=== PATIENT | female | born 1970 | race Caucasian/White ===

== ENCOUNTER 2016-09-07 12:20 | Emergency (ER) | payer OTHER ==
[2016-09-07 12:49] VITALS: BP 135/85
--- NOTE | 2016-09-07 13:28 | UC ---
Respiratory Complaint HPI - HPI Summary HPI Summary: Patient with 2x history of cough, sore throat, dry mouth and head congestion. Previous smoker. Laying down makes the cough worse. She has been around sick contacts, all with URI symptoms. States she has had some nasal discharge green in color, denies sinus pressure or pain. Denies ear pain, eye pain or ARANDA. Takes an allergy medication daily. - History of Current Complaint Chief Complaint: UCRespiratory Stated Complaint: COUGH Hx Obtained From: Patient Hx Last Menstrual Period: hysterectomy ?: No Onset/Duration: Gradual Onset Timing: Constant Severity Initially: Mild Severity Currently: Moderate Pain Intensity: 1 Pain Scale Used: 0-10 Numeric Character: Cough: Nonproductive Aggravating Factors: Allergens Alleviating Factors: Nothing Associated Signs And Symptoms: Positive: Negative - Risk Factors Pulmonary Embolism Risk Factors: Smoking - history of smoking Cardiac Risk Factors: Smoking Pseudomonas Risk Factors: Negative Tuberculosis Risk Factors: Smoking - Allergies/Home Medications Allergies/Adverse Reactions: Allergies Allergy/AdvReac Type Severity Reaction Status Date / Time Amoxicillin [From Augmentin] Allergy Rash Verified 09/07/16 12:49 Clavulanic Acid Allergy Rash Verified 09/07/16 12:49 [From Augmentin] PMH/Surg Hx/FS Hx/Imm Hx Previously Healthy: Yes Endocrine History Of: Denies: Diabetes, Thyroid Disease Cardiovascular History Of: Denies: Cardiac Disorders, Hypertension, Pacemaker/ICD Respiratory History Of: Reports: Asthma - ALLERGY INDUCED Denies: COPD GI/ History Of: Reports: Ulcer Denies: Renal Disease Cancer History Of: Denies: Breast Cancer - Surgical History Surgical History: Yes Surgery Procedure, Year, and Place: mass removed from uterus 06/13/12. right wrist ganglion cyst. 12/25/12 Hysterectomy - Family History Known Family History: Positive: None, Hypertension, Diabetes, Other - noncontributory - Social History Occupation: Employed Full-time Lives: With Family Alcohol Use: None Substance Use Type: None Smoking Status (MU): Former Smoker Type: Cigarettes Amount Used/How Often: 1/2 ppd Length of Time of Smoking/Using Tobacco: 30 years QUIT 09/16/15 BUT IS "CHEATING Have You Smoked in the Last Year: Yes When Did the Patient Quit Smoking/Using Tobacco: aug 12, 2015 Household Exposure Type: Cigarettes - Immunization History Most Recent Influenza Vaccination: 2014 Hx Tetanus, Diphtheria Vaccination: Yes Vaccination Up to Date: Yes Review of Systems Constitutional: Negative Skin: Negative Eyes: Negative ENT: Sore Throat, Nasal Discharge Respiratory: Shortness Of Breath, Cough Gastrointestinal: Negative Motor: Negative Musculoskeletal: Negative Neurological: Negative All Other Systems Reviewed And Are Negative: Yes Physical Exam Triage Information Reviewed: Yes Appearance: Well-Appearing, No Pain Distress, Well-Nourished Vital Signs: Initial Vital Signs Temp 97.7 F 09/07/16 12:42 Pulse 82 09/07/16 12:42 Resp 20 09/07/16 12:42 BP 135/85 09/07/16 12:42 Pulse Ox 96 09/07/16 12:42 Eye Exam: Normal Eyes: Positive: Conjunctiva Clear ENT Exam: Normal ENT: Positive: Normal ENT inspection, Pharynx normal, Nasal congestion, Nasal drainage Dental: Positive: Gross Decay/Caries @ - all Neck exam: Normal Neck: Positive: Supple, Nontender, No Lymphadenopathy Respiratory Exam: Normal Respiratory: Positive: Chest non-tender, Lungs clear, Normal breath sounds Cardiovascular Exam: Normal Musculoskeletal Exam: Normal Musculoskeletal: Positive: Strength Intact, ROM Intact Neurological Exam: Normal Psychological: Positive: Normal Response To Family Skin Exam: Normal UC Diagnostic Evaluation - Laboratory O2 Sat by Pulse Oximetry: 96 Respiratory Course/Dx - Course Course Of Treatment: patient eduated on antibiotics. d/t 2 day history of cough with white/green nasal discharge, it is unlikely this is bacterial in nature and will not give abx at this time. patient agrees. will treat with cough medication and prednisone for sob d/t smoking history. return precautions given. - Differential Dx/Diagnosis Differential Diagnosis/HQI/PQRI: Bronchitis, Sinusitis, Other Provider Diagnoses: URI - Physician Notification/Consults Instructed by Provider To: Have Pt Call For Appt. Discharge - Discharge Plan Condition: Stable Disposition: HOME Prescriptions: guaiFENesin/CODIEN 100MG-10MG* [Robitussin AC 100Mg-10Mg*] 10 ml PO Q6H PRN # 150 ml MDD 40 PRN Reason: Cough predniSONE TAB* [Deltasone TAB*] 10 mg PO DAILY #17 tab Patient Education Materials: Upper Respiratory Infection (ED) Referrals: Jen Suarez MD [Primary Care Provider] - Additional Instructions: Drink plenty of fluids. Humidifier in the home will help. Cepacol over the counter lozenges for sore throat. Take medications as prescribed to you. If symptoms do not improve or worsen, come back to UC. Begin your jared-C again.
== END 2016-09-07 13:25 | disposition home or self-care (01) ==
LOC: UCEAST 12:20
DX: J06.9 Acute upper respiratory infection, unspecified (principal); Z87.891 Personal history of nicotine dependence; Z88.0 Allergy status to penicillin
CPT/HCPCS: 99212; G0463

== ENCOUNTER 2016-09-12 16:07 | Emergency (ER) | payer OTHER ==
[2016-09-12 16:40] VITALS: BP 120/79
--- NOTE | 2016-09-12 17:06 | UC ---
Throat Pain/Nasal Teddy HPI - HPI Summary HPI Summary: going on 2 weeks of sinus pain, teeth pain nasal congestion sore throat and cough - History of Current Complaint Chief Complaint: UCRespiratory Stated Complaint: COLD,ST Time Seen by Provider: 09/12/16 16:59 Hx Obtained From: Patient Hx Last Menstrual Period: hysterectomy ?: No Onset/Duration: Gradual Onset, Lasting Weeks - 2, Still Present Severity: Moderate Pain Intensity: 6 Pain Scale Used: 0-10 Numeric Cough: Nonproductive Associated Signs & Symptoms: Positive: Sinus Discomfort, Nasal Discharge - Allergies/Home Medications Allergies/Adverse Reactions: Allergies Allergy/AdvReac Type Severity Reaction Status Date / Time Amoxicillin [From Augmentin] Allergy Rash Verified 09/12/16 16:40 Clavulanic Acid Allergy Rash Verified 09/12/16 16:40 [From Augmentin] PMH/Surg Hx/FS Hx/Imm Hx Previously Healthy: No Endocrine History Of: Denies: Diabetes, Thyroid Disease Cardiovascular History Of: Denies: Cardiac Disorders, Hypertension, Pacemaker/ICD Respiratory History Of: Reports: Asthma - ALLERGY INDUCED Denies: COPD GI/ History Of: Reports: Ulcer Denies: Renal Disease Cancer History Of: Denies: Breast Cancer - Surgical History Surgical History: Yes Surgery Procedure, Year, and Place: mass removed from uterus 06/13/12. right wrist ganglion cyst. 12/25/12 Hysterectomy - Family History Known Family History: Positive: None, Hypertension, Diabetes, Other - noncontributory - Social History Occupation: Employed Full-time - day care provider Lives: With Family Alcohol Use: None Substance Use Type: None Smoking Status (MU): Former Smoker Type: Cigarettes Amount Used/How Often: 1/2 ppd Length of Time of Smoking/Using Tobacco: 30 years QUIT 09/16/15 BUT IS "CHEATING Have You Smoked in the Last Year: Yes When Did the Patient Quit Smoking/Using Tobacco: aug 12, 2015 Household Exposure Type: Cigarettes - Immunization History Most Recent Influenza Vaccination: 2014 Hx Tetanus, Diphtheria Vaccination: Yes Vaccination Up to Date: Yes Review of Systems Constitutional: Negative Skin: Negative Eyes: Negative ENT: Sore Throat, Ear Ache, Nasal Discharge Respiratory: Cough Cardiovascular: Negative Gastrointestinal: Negative Genitourinary: Negative Motor: Negative Neurovascular: Negative Musculoskeletal: Negative Neurological: Headache Psychological: Negative All Other Systems Reviewed And Are Negative: Yes Physical Exam Triage Information Reviewed: Yes Appearance: Well-Nourished, Ill-Appearing - mild, Pain Distress Vital Signs: Initial Vital Signs Temp 97.7 F 09/12/16 16:36 Pulse 79 09/12/16 16:36 Resp 16 09/12/16 16:36 BP 120/79 09/12/16 16:36 Pulse Ox 99 09/12/16 16:36 Vital Signs Reviewed: Yes Eye Exam: Normal Eyes: Positive: Conjunctiva Clear ENT Exam: Normal ENT: Positive: Normal ENT inspection, Hearing grossly normal, Pharynx normal, Nasal congestion, Nasal drainage, TMs normal. Negative: Tonsillar swelling, Tonsillar exudate, Trismus, Muffled/hoarse voice Dental Exam: Normal Neck exam: Normal Neck: Positive: Supple, Nontender, No Lymphadenopathy Respiratory Exam: Normal Respiratory: Positive: Chest non-tender, Lungs clear, Normal breath sounds, No respiratory distress, No accessory muscle use Cardiovascular Exam: Normal Cardiovascular: Positive: RRR, No Murmur, Pulses Normal, Brisk Capillary Refill Musculoskeletal Exam: Normal Musculoskeletal: Positive: Strength Intact, ROM Intact, No Edema Neurological Exam: Normal Neurological: Positive: Alert, Muscle Tone Normal Psychological Exam: Normal Psychological: Positive: Normal Response To Family Skin Exam: Normal Throat Pain/Nasal Course/Dx - Course Assessment/Plan: Zithromax, albuterol, flonase, increase fluids follow with pcp - Differential Dx/Diagnosis Differential Diagnosis/HQI/PQRI: Laryngitis, Mononucleosis, Otitis Media, Pharyngitis, Sinusitis, URI Provider Diagnoses: Sinusitis Discharge - Discharge Plan Condition: Stable Disposition: HOME Prescriptions: Albuterol HFA INHALER* [Ventolin HFA Inhaler*] 2 puff INH Q6H PRN #1 mdi PRN Reason: cough/chest congestion Azithromycin TAB* [Zithromax TAB (Z-KANCHAN)*] 250 mg PO .Z-KANCHAN INSTRUCTIONS #6 tab Fluticasone NASAL SPRAY 50MCG* [Flonase NASAL SPRAY 50MCG*] 2 spray BOTH NARES DAILY #1 btl Patient Education Materials: Sinusitis (ED), How to Use a Metered-Dose Inhaler (ED), How to Use Nasal [place] (ED) Referrals: Jen Suarez MD [Primary Care Provider] - If Needed
== END 2016-09-12 17:27 | disposition home or self-care (01) ==
LOC: UCEAST 16:07
DX: J32.9 Chronic sinusitis, unspecified (principal); Z88.1 Allergy status to other antibiotic agents; Z88.0 Allergy status to penicillin; Z87.891 Personal history of nicotine dependence
CPT/HCPCS: 99212; G0463

== ENCOUNTER 2016-12-15 18:11 | Emergency (ER) | payer OTHER ==
[2016-12-15 18:26] VITALS: BP 140/90
--- NOTE | 2016-12-15 19:10 | UC ---
Throat Pain/Nasal Teddy HPI - HPI Summary HPI Summary: Lots of PND x 1-2 weeks, face burning, worse when it was raining. Now hoarse and ST with "white popcorn" in her throat. Has exposure to 3 school-aged granddaughters. No fevers or trouble breathing. - History of Current Complaint Chief Complaint: UCRespiratory Stated Complaint: SINUS CONGESTION Time Seen by Provider: 12/15/16 18:40 Hx Obtained From: Patient Hx Last Menstrual Period: hysterectomy ?: No Onset/Duration: Gradual Onset, Lasting Weeks Severity: Mild Cough: Productive - throat-clearing Associated Signs & Symptoms: Positive: Hoarseness, Nasal Discharge. Negative: Fever, Vomiting Related History: Seasonal Allergies, Smoking - Allergies/Home Medications Allergies/Adverse Reactions: Allergies Allergy/AdvReac Type Severity Reaction Status Date / Time Amoxicillin [From Augmentin] Allergy Rash Verified 09/12/16 16:40 Clavulanic Acid Allergy Rash Verified 09/12/16 16:40 [From Augmentin] PMH/Surg Hx/FS Hx/Imm Hx Endocrine History Of: Denies: Diabetes, Thyroid Disease Cardiovascular History Of: Denies: Cardiac Disorders, Hypertension, Pacemaker/ICD Respiratory History Of: Reports: Asthma - ALLERGY INDUCED Denies: COPD GI/ History Of: Reports: Ulcer Denies: Renal Disease Cancer History Of: Denies: Breast Cancer - Surgical History Surgical History: Yes Surgery Procedure, Year, and Place: mass removed from uterus 06/13/12. right wrist ganglion cyst. 12/25/12 Hysterectomy - Family History Known Family History: Positive: None, Hypertension, Diabetes, Other - noncontributory - Social History Alcohol Use: None Substance Use Type: None Smoking Status (MU): Current Some Day Smoker Type: Cigarettes Amount Used/How Often: 1/2 ppd Length of Time of Smoking/Using Tobacco: 30 years QUIT 09/16/15 BUT IS "CHEATING Have You Smoked in the Last Year: Yes When Did the Patient Quit Smoking/Using Tobacco: aug 12, 2015 Household Exposure Type: Cigarettes - Immunization History Most Recent Influenza Vaccination: 2014 Hx Tetanus, Diphtheria Vaccination: Yes Vaccination Up to Date: Yes Review of Systems Constitutional: Negative Skin: Negative Eyes: Negative ENT: Sore Throat, Nasal Discharge Respiratory: Cough Cardiovascular: Negative Gastrointestinal: Negative Genitourinary: Negative Motor: Negative Neurovascular: Negative Musculoskeletal: Negative Neurological: Negative Psychological: Negative All Other Systems Reviewed And Are Negative: Yes Physical Exam Triage Information Reviewed: Yes Appearance: Well-Appearing, No Pain Distress, Obese Vital Signs: Initial Vital Signs Temp 98.0 F 12/15/16 18:22 Pulse 77 12/15/16 18:22 Resp 18 12/15/16 18:22 BP 140/90 12/15/16 18:22 Pulse Ox 99 12/15/16 18:22 Vital Signs Reviewed: Yes Eye Exam: Normal Eyes: Positive: Conjunctiva Clear ENT: Positive: Hearing grossly normal, Pharyngeal erythema - mild, Nasal congestion, TMs normal Neck exam: Normal Neck: Positive: Supple, Nontender, No Lymphadenopathy Respiratory Exam: Normal Respiratory: Positive: Chest non-tender, Lungs clear, Normal breath sounds, No respiratory distress, No accessory muscle use Cardiovascular Exam: Normal Cardiovascular: Positive: RRR, No Murmur Musculoskeletal Exam: Normal Neurological Exam: Normal Neurological: Positive: Alert Psychological Exam: Normal Skin Exam: Normal Throat Pain/Nasal Course/Dx - Differential Dx/Diagnosis Provider Diagnoses: Allergic sinusitis. blood pressure elevated due to discomfort Discharge - Discharge Plan Condition: Stable Disposition: HOME Patient Education Materials: Allergic Rhinitis (ED) Referrals: Jen Suarez MD [Primary Care Provider] - 2 Weeks Additional Instructions: Rapid strep negative. If you have fever, facial swelling, difficulty breathing, severe pain, or marked worsening, please see your primary care provider or return here.
== END 2016-12-15 19:30 | disposition home or self-care (01) ==
LOC: UCEAST 18:11
DX: J30.9 Allergic rhinitis, unspecified (principal); R03.0 Elevated blood-pressure reading, without diagnosis of hypertension; E66.9 Obesity, unspecified; Z88.1 Allergy status to other antibiotic agents; Z72.0 Tobacco use
CPT/HCPCS: 87651; 99212; G0463

== ENCOUNTER 2017-01-24 09:13 | Day surgery (SDC) | payer OTHER ==
[~2017-01-24 09:13] MED LIST: Lidocaine 1% INJ* 10 MG/ML 30 ML SDV ONE
[2017-01-24] MEDS ORDERED: fentaNYL* 50 MCG/ML 2 ML VIAL (100 MCG VIAL) ONE (11:13)
[2017-01-24] MEDS ORDERED: Midazolam* 1 MG/ML 2 ML VIAL (2 MG) ONE ×2 (11:14→11:36)
[2017-01-24 12:15] VITALS: BP 130/85
--- NOTE | 2017-01-25 02:58 | OP ---
OPERATIVE REPORT: DATE OF OPERATION: 01/24/17 - DAVIDA DATE OF : 66 SURGEON: Fany Lee MD. WET MILLING WHEEL OPERATOR: MASOUD Goncalves ANESTHESIOLOGIST: Phillip Juarez MD. ANESTHESIA: Local MAC. PRE-OP DIAGNOSIS: Right middle finger mass and left wrist ganglion. POST-OP DIAGNOSIS: Right middle finger mass and left wrist ganglion. PROCEDURE: Removal of right middle finger mass and left wrist ganglion. ESTIMATED BLOOD LOSS: Zero. TOURNIQUET TIME: About 12 minutes on the left and 8 minutes on the right. DESCRIPTION OF PROCEDURE: The patient was brought to the operating room and was given a sedation anesthetic and a local infiltration of 10 cc of 1% plain lidocaine on the radial aspect of the right wrist and on the volar aspect of the right middle finger. The skin of her bilateral hand and forearm was prepped and draped in the usual sterile fashion. The hand and forearm on the left were exsanguinated and the tourniquet elevated 250 mmHg. A Chevron incision was made over the palpable mass and we dissected through the subcutaneous tissue down to the ganglion cyst. The cyst was traced down with its root to the joint capsule and removed and sent for pathology. The edges of the capsule were cauterized with Bovie, the wound was irrigated and the skin edges reapproximated with 4-0 nylon suture. The wound was dressed with Xeroform , 4x4, Webril and an Stu wrap and the tourniquet was released. Next, the right hand and forearm were exsanguinated and the tourniquet elevated to 250 mmHg. A transverse incision was made centered over the MP flexion crease of the middle finger, dissected down to the flexor tendon sheath. The digital neurovascular bundles were retracted. There was a ganglion cyst emanating from the flexor tendon sheath and it was removed with a small portion of the sheath and sent for pathology. The wound was irrigated and the skin edges reapproximated with 4-0 nylon sutures. The wound was dressed with Xeroform, 4x4, Webril and Coban. The patient tolerated the procedure well and was brought to the recovery room in good condition. [id number]/CPS #: [id number] [facility]OSPITALJacque
== END 2017-01-24 12:29 | disposition home or self-care (01) ==
LOC: OREAST 09:13
PROVIDERS: ATTEND Orthopaedic Surgery
DX: M67.432 Ganglion, left wrist (principal); L72.0 Epidermal cyst; Z87.891 Personal history of nicotine dependence; K21.9 Gastro-esophageal reflux disease without esophagitis; M79.606 Pain in leg, unspecified
CPT/HCPCS: 88304; J2001; J2250; J3010

== ENCOUNTER 2017-03-02 18:31 | Emergency (ER) | payer OTHER ==
[2017-03-02 19:08] VITALS: BP 142/85
--- NOTE | 2017-03-02 19:37 | UC ---
Throat Pain/Nasal Teddy HPI - HPI Summary HPI Summary: 2.5 WEEKS OF COUGH SINUS CONGESTION, FACIAL/SINUS HEADACHE AND PRESSURE. QUIT SMOKING 8 MONTHS AGO - History of Current Complaint Chief Complaint: UCRespiratory Stated Complaint: sinus and chest congestion Time Seen by Provider: 03/02/17 19:07 Hx Obtained From: Patient, Family/Research Dietitian Hx Last Menstrual Period: hysterectomy Onset/Duration: Gradual Onset, Lasting Weeks, Still Present Severity: Moderate Pain Intensity: 4 Pain Scale Used: 0-10 Numeric Cough: Productive Associated Signs & Symptoms: Positive: Hoarseness, Sinus Discomfort, Nasal Discharge - Epiglottits Risk Factors Epiglottis Risk Factors: Negative - Allergies/Home Medications Allergies/Adverse Reactions: Allergies Allergy/AdvReac Type Severity Reaction Status Date / Time Amoxicillin [From Augmentin] Allergy Rash Verified 03/02/17 19:09 Clavulanic Acid Allergy Rash Verified 03/02/17 19:09 [From Augmentin] Home Medications: Home Medications Bioflavonoid Products [[place]-C] 1 tab PO DAILY 03/02/17 [History Confirmed 03/02] Sinus Decongestant* PRN 03/02/17 [History] PMH/Surg Hx/FS Hx/Imm Hx Previously Healthy: Yes - Surgical History Surgical History: Yes Surgery Procedure, Year, and Place: mass removed from uterus 06/13/12. right wrist ganglion cyst. 12/25/12 Hysterectomy. LEFT WRIST AND RIGHT FINGER GANGLION CYSTS REMOVAL 2016 - Family History Known Family History: Positive: None, Hypertension, Diabetes, Other - noncontributory - Social History Occupation: Employed Full-time Lives: With Family Alcohol Use: None Substance Use Type: None Smoking Status (MU): Current Every Day Smoker Type: Cigarettes Amount Used/How Often: 1/2 ppd for 30 yrs Length of Time of Smoking/Using Tobacco: 30 years QUIT 09/16/15 BUT IS "CHEATING Have You Smoked in the Last Year: Yes When Did the Patient Quit Smoking/Using Tobacco: aug 12, 2015 Household Exposure Type: Cigarettes - Immunization History Most Recent Influenza Vaccination: 2014 Hx Tetanus, Diphtheria Vaccination: Yes Vaccination Up to Date: Yes Review of Systems Constitutional: Negative Skin: Negative Eyes: Negative ENT: Nasal Discharge, Sinus Congestion, Sinus Pain/Tenderness Respiratory: Cough Cardiovascular: Negative Gastrointestinal: Negative Genitourinary: Negative Motor: Negative Neurovascular: Negative Musculoskeletal: Negative Neurological: Negative Psychological: Negative All Other Systems Reviewed And Are Negative: Yes Physical Exam Triage Information Reviewed: Yes Appearance: Well-Appearing, No Pain Distress, Well-Nourished Vital Signs: Initial Vital Signs Temp 98.2 F 03/02/17 19:05 Pulse 81 03/02/17 19:05 Resp 16 03/02/17 19:05 BP 142/85 03/02/17 19:05 Pulse Ox 99 03/02/17 19:05 Vital Signs Reviewed: Yes Eye Exam: Normal ENT: Positive: Hearing grossly normal, Pharynx normal, Nasal congestion, TMs normal, TM dull Dental Exam: Normal Neck exam: Normal Neck: Positive: Supple, Nontender, No Lymphadenopathy Respiratory Exam: Normal Respiratory: Positive: Chest non-tender, Lungs clear, Normal breath sounds, No respiratory distress, No accessory muscle use Cardiovascular Exam: Normal Cardiovascular: Positive: RRR, No Murmur Abdominal Exam: Normal Abdomen Description: Positive: Nontender Musculoskeletal Exam: Normal Neurological Exam: Normal Psychological Exam: Normal Skin Exam: Normal Throat Pain/Nasal Course/Dx - Differential Dx/Diagnosis Differential Diagnosis/HQI/PQRI: Sinusitis, Tonsillitis, URI Provider Diagnoses: SINUSITIS; BRONCHITIS WITH BRONCHOSPASM Discharge - Discharge Plan Condition: Stable Disposition: HOME Prescriptions: Albuterol HFA INHALER* [Ventolin HFA Inhaler*] 1 - 2 puff INH Q6H PRN #1 mdi PRN Reason: Wheezing Azithromycin TAB* [Zithromax TAB (Z-KANCHAN) 250 mg #6 tabs] 250 mg PO DAILY #6 tab Benzonatate CAP* [Tessalon 100 MG CAP*] 100 mg PO TID PRN #15 cap PRN Reason: Cough Patient Education Materials: Sinusitis (ED), Acute Bronchitis (ED), Bronchospasm (ED) Referrals: Jen Suarez MD [Primary Care Provider] -
== END 2017-03-02 19:34 | disposition home or self-care (01) ==
LOC: UCEAST 18:31
DX: J32.9 Chronic sinusitis, unspecified (principal); J20.9 Acute bronchitis, unspecified; Z72.0 Tobacco use
CPT/HCPCS: 99212; G0463

== ENCOUNTER 2017-03-20 19:10 | Emergency (ER) | payer OTHER ==
--- NOTE | 2017-03-20 20:19 | UC ---
Heavenly Nelson Alfonso, scribed for Isabell Hanson MD on 03/20/17 at 2007 . Ear Complaint HPI - HPI Summary HPI Summary: This patient is a 46 year old F presenting to [facility] accompanied by with a chief complaint of right ear pain since a few weeks ago. The CC is described as an ache. Pt rates the pain 9/10 in severity. Pt reports sinus pressure and PND. Pt reports upper dental discomfort from sinuses. Pt states last week she yelled at her granddaughter and developed feeling of fullness of right sided lymph nodes. Pt reports dental pain, neck swelling, pain secondary to swallowing, and sinus pressure. Pt denies cough. PMHx of seasonal allergies being treated with Flonase. Patients medication reviewed this visit. - History of Current Complaint Chief Complaint: UCEar Stated Complaint: EAR PAIN SORE THROAT Time Seen by Provider: 03/20/17 19:52 Hx Obtained From: Patient Hx Last Menstrual Period: hysterectomy Onset/Duration: Sudden Onset, Lasting Weeks - a few, Still Present Severity Initially: Moderate Severity Currently: Moderate Pain Intensity: 9 Pain Scale Used: 0-10 Numeric Alleviating Factors: Nothing Associated Signs/Symptoms: Positive: Swelling @ - neck Related History: Seasonal Allergies - Allergies/Home Medications Allergies/Adverse Reactions: Allergies Allergy/AdvReac Type Severity Reaction Status Date / Time Amoxicillin [From Augmentin] Allergy Rash Verified 03/02/17 19:09 Clavulanic Acid Allergy Rash Verified 03/02/17 19:09 [From Augmentin] PMH/Surg Hx/FS Hx/Imm Hx Previously Healthy: Yes - Surgical History Surgical History: Yes Surgery Procedure, Year, and Place: mass removed from uterus 06/13/12. right wrist ganglion cyst. 12/25/12 Hysterectomy. LEFT WRIST AND RIGHT FINGER GANGLION CYSTS REMOVAL 2016 - Family History Known Family History: Positive: Hypertension, Diabetes - Social History Occupation: Employed Full-time Alcohol Use: None Substance Use Type: None Smoking Status (MU): Former Smoker Type: Cigarettes Amount Used/How Often: 1/2 ppd for 30 yrs Length of Time of Smoking/Using Tobacco: 30 years QUIT 09/16/15 BUT IS "CHEATING Have You Smoked in the Last Year: Yes When Did the Patient Quit Smoking/Using Tobacco: aug 12, 2015 Household Exposure Type: Cigarettes - Immunization History Most Recent Influenza Vaccination: 2014 Hx Tetanus, Diphtheria Vaccination: Yes Vaccination Up to Date: Yes Review of Systems Constitutional: Negative Skin: Negative Eyes: Negative ENT: Ear Ache, Sinus Congestion, Sinus Pain/Tenderness, Other - Positive right ear pain, dental pain, sinus presure Respiratory: Other - Negative cough. Cardiovascular: Negative Gastrointestinal: Negative Genitourinary: Negative Motor: Negative Neurovascular: Negative Musculoskeletal: Negative Neurological: Negative Psychological: Negative All Other Systems Reviewed And Are Negative: Yes Physical Exam Triage Information Reviewed: Yes Completion Of Physical Exam Limited Due To: Altered Mental Status Appearance: Well-Appearing, No Pain Distress, Well-Nourished Vital Signs: Initial Vital Signs Temp 97.6 F 03/20/17 19:13 Pulse 90 03/20/17 19:13 Resp 16 03/20/17 19:13 Pulse Ox 99 03/20/17 19:13 Vital Signs Reviewed: Yes Eye Exam: Normal ENT: Positive: Hearing grossly normal, Nasal congestion, Nasal drainage, TM bulging - right ear ++ fluid, retraction turbinates inflammed and boggy + PND mmoist no exudate, no erythema. Negative: Pharyngeal erythema, TMs normal Dental Exam: Normal Neck exam: Normal Neck: Positive: Supple, Nontender. Negative: No Lymphadenopathy - + submandibular LA R>L Respiratory Exam: Normal Respiratory: Positive: Chest non-tender, Lungs clear, Normal breath sounds, No respiratory distress Cardiovascular Exam: Normal Cardiovascular: Positive: RRR, No Murmur, Pulses Normal Abdominal Exam: Normal Abdomen Description: Positive: Nontender, No Organomegaly Bowel Sounds: Positive: Present Musculoskeletal Exam: Normal Musculoskeletal: Positive: Strength Intact Neurological Exam: Normal Neurological: Positive: Alert Psychological Exam: Normal Ear Complaint Course/Dx - Course Course Of Treatment: PT with head congestion, right ear pain, lymph adenopathy. Pt with otitis media and sinusitis on exam. recommend hydrate. Continue zyrtec. Continue flonase. secretion precautions. Moxiflox (pt can't tolerate Augmentin, previously took zpack) - Differential Dx/Diagnosis Provider Diagnoses: sinusitis, otitis media Discharge - Discharge Plan Condition: Stable Disposition: HOME Prescriptions: Moxifloxacin TAB(NF) [Avelox TAB (NF)] 400 mg PO DAILY #10 tab Patient Education Materials: Sinusitis (ED), Otitis Media (ED) Referrals: Jen Suarez MD [Primary Care Provider] - Additional Instructions: - Stay well hydrated. Drink plenty of non-alcoholic, non-caffinated beverages. - Continue to take your Zyrtec, flonase as previously prescribed - Take antibiotics as prescribed until gone - After you have been on antibiotics for 2 days - change your toothbrush and your pillowcase. These infections are spread by secretions - do NOT share eating or drinking utensils - clean items you share with other people such as cell phones, computer mouse, TV remote, computer tablets, etc - Alternate ibuprofen (Advil, Motrin) 600mg and Tylenol every 3 hours for pain or fever. Take with food. Do NOT take for more than 4-5 days. - Try not to have air blowing directly on you face when you sleep - Call your doctor to schedule a follow-up appointment. Call your doctor or return with questions or concerns The documentation as recorded by the Heavenly rosas Alfonso accurately reflects the service I personally performed and the decisions made by me, Isabell Hanson MD.
== END 2017-03-20 20:26 | disposition home or self-care (01) ==
LOC: UCEAST 19:10
DX: J32.9 Chronic sinusitis, unspecified (principal); H66.91 Otitis media, unspecified, right ear; Z87.891 Personal history of nicotine dependence
CPT/HCPCS: 99212; G0463

== ENCOUNTER 2017-07-28 15:33 | Emergency (ER) | payer OTHER ==
[2017-07-28 15:42] VITALS: BP 137/80
--- NOTE | 2017-07-28 16:20 | UC ---
Respiratory Complaint HPI - HPI Summary HPI Summary: Pt presents with cough and sinus congestion. She tells me that 1.5 weeks ago she developed a dry cough and some PND, this has progressed into a productive cough producing green sputum with sinus congestion/pain/pressure and b/l earache. She has been taking dayquill and nyquill OTC with minimal relief. She admits to feeling warm with chills at times, but has not taken her temperature. Denies SOB, chest pain, abdominal pain, N/V/D/C, or recent illness. - History of Current Complaint Chief Complaint: UCRespiratory Stated Complaint: SINUS HEADACHE,COUGH Time Seen by Provider: 07/28/17 16:19 Hx Obtained From: Patient Hx Last Menstrual Period: hysterectomy ?: No Onset/Duration: Gradual Onset Timing: Constant Severity Initially: Moderate Severity Currently: Moderate Character: Cough: Productive - Allergies/Home Medications Allergies/Adverse Reactions: Allergies Allergy/AdvReac Type Severity Reaction Status Date / Time Amoxicillin [From Augmentin] Allergy Rash Verified 07/28/17 15:42 Clavulanic Acid Allergy Rash Verified 07/28/17 15:42 [From Augmentin] PMH/Surg Hx/FS Hx/Imm Hx Previously Healthy: Yes Cardiovascular History: Hypertension Respiratory History: Asthma - Surgical History Surgical History: Yes Surgery Procedure, Year, and Place: mass removed from uterus 06/13/12. right wrist ganglion cyst. 12/25/12 Hysterectomy. LEFT WRIST AND RIGHT FINGER GANGLION CYSTS REMOVAL 2016 - Family History Known Family History: Positive: None, Hypertension, Diabetes, Other - noncontributory - Social History Occupation: Employed Full-time Lives: With Family Alcohol Use: None Substance Use Type: None Smoking Status (MU): Current Some Day Smoker Type: Cigarettes Amount Used/How Often: 1/2 ppd for 30 yrs Length of Time of Smoking/Using Tobacco: 30 years QUIT 09/16/15 BUT IS "CHEATING Have You Smoked in the Last Year: Yes When Did the Patient Quit Smoking/Using Tobacco: aug 12, 2015 Household Exposure Type: Cigarettes Cessation Counseling: Counseled 3+Min - 10 Min - Immunization History Most Recent Influenza Vaccination: 2014 Hx Tetanus, Diphtheria Vaccination: Yes Vaccination Up to Date: Yes Review of Systems Constitutional: Fever, Chills Skin: Negative Eyes: Negative ENT: Ear Ache, Nasal Discharge, Sinus Congestion, Sinus Pain/Tenderness Respiratory: Cough Cardiovascular: Negative Gastrointestinal: Negative Genitourinary: Negative Neurological: Negative All Other Systems Reviewed And Are Negative: Yes Physical Exam Triage Information Reviewed: Yes Appearance: Well-Appearing, Well-Nourished Vital Signs: Initial Vital Signs Temp 97.7 F 07/28/17 15:40 Pulse 79 07/28/17 15:40 Resp 18 07/28/17 15:40 BP 137/80 07/28/17 15:40 Pulse Ox 100 07/28/17 15:40 Vital Signs Reviewed: Yes Eyes: Positive: Conjunctiva Clear. Negative: Discharge ENT: Positive: Hearing grossly normal, Pharyngeal erythema, Nasal congestion, Nasal drainage, TM bulging - Right ear, TM red - Right ear, Sinus tenderness, Uvula midline. Negative: Tonsillar swelling, Tonsillar exudate Neck: Positive: Supple, Nontender, No Lymphadenopathy Respiratory: Positive: Chest non-tender, No respiratory distress, No accessory muscle use, Wheezing - Throughout. Negative: Crackles, Rhonchi, Stridor Cardiovascular: Positive: RRR, No Murmur, Pulses Normal Neurological: Positive: Alert Psychological: Positive: Age Appropriate Behavior Skin: Negative: rashes UC Diagnostic Evaluation - Laboratory O2 Sat by Pulse Oximetry: 100 Respiratory Course/Dx - Course Course Of Treatment: Right otitis media. Sinusitis. Bronchitis. Pt has allergy to Augmentin (rash), but has taken amoxicillin without issue. will rx for Amoxicillin and mucinex. Keep using albuterol inhaler at home prn - Differential Dx/Diagnosis Differential Diagnosis/HQI/PQRI: Asthma, Bronchitis, Influenza, Laryngitis, Lower Resp Infection, Sinusitis Provider Diagnoses: Sinusitis. Right otitis media. Bronchitis Discharge - Discharge Plan Condition: Stable Disposition: HOME Prescriptions: Amoxicillin PO (*) [Amoxicillin 500 MG CAP*] 500 mg PO Q12H #20 cap Fluticasone NASAL SPRAY 50MCG* [Flonase NASAL SPRAY 50MCG*] 2 spray BOTH NARES DAILY #1 btl Patient Education Materials: Sinusitis (ED), Otitis Media (ED) Referrals: Jen Suarez MD [Primary Care Provider] - Additional Instructions: 1) Rest and drink plenty of water 2) Mucinex OTC twice a day If you develop a fever, SOB, chest pain, new or worsening symptoms - please call your PCP or go to the ED. Your blood pressure was high at todays visit. Please see your primary provider within 4 weeks for recheck and re-evaluation.
== END 2017-07-28 16:33 | disposition home or self-care (01) ==
LOC: UCEAST 15:33
DX: J32.9 Chronic sinusitis, unspecified (principal); H66.91 Otitis media, unspecified, right ear; J40 Bronchitis, not specified as acute or chronic
CPT/HCPCS: 99212; G0463

== ENCOUNTER 2018-05-29 09:34 | Emergency (ER) | payer OTHER ==
[2018-05-29 09:51] VITALS: BP 136/92
--- NOTE | 2018-05-29 10:22 | UC ---
Throat Pain/Nasal Teddy HPI - HPI Summary HPI Summary: sinus pain and pressure x 10 days + nasal congestion , pnd, no fever, no chills - History of Current Complaint Chief Complaint: UCRespiratory Stated Complaint: RESP ISSUE COUGH Time Seen by Provider: 05/29/18 10:08 Hx Obtained From: Patient Hx Last Menstrual Period: hysterectomy ?: No Onset/Duration: Gradual Onset, Lasting Days - 10, Still Present Severity: Moderate Pain Intensity: 0 Cough: Nonproductive Associated Signs & Symptoms: Positive: Wheezing, Sinus Discomfort, Nasal Discharge. Negative: Fever - Allergies/Home Medications Allergies/Adverse Reactions: Allergies Allergy/AdvReac Type Severity Reaction Status Date / Time clavulanic acid Allergy Rash Verified 05/29/18 09:51 PMH/Surg Hx/FS Hx/Imm Hx Respiratory History: Asthma GI/ History: Ulcer - Surgical History Surgical History: Yes Surgery Procedure, Year, and Place: mass removed from uterus 06/13/12. right wrist ganglion cyst. 12/25/12 Hysterectomy. LEFT WRIST AND RIGHT FINGER GANGLION CYSTS REMOVAL 2016 - Family History Known Family History: Positive: None, Hypertension, Diabetes, Other - noncontributory - Social History Alcohol Use: None Substance Use Type: None Smoking Status (MU): Current Some Day Smoker Type: Cigarettes Amount Used/How Often: 1/2 ppd for 30 yrs Length of Time of Smoking/Using Tobacco: 30 years QUIT 09/16/15 BUT IS "CHEATING Have You Smoked in the Last Year: Yes When Did the Patient Quit Smoking/Using Tobacco: aug 12, 2015 Household Exposure Type: Cigarettes - Immunization History Most Recent Influenza Vaccination: 2014 Hx Tetanus, Diphtheria Vaccination: Yes Vaccination Up to Date: Yes Review of Systems Constitutional: Negative Skin: Negative Eyes: Negative ENT: Sore Throat, Nasal Discharge, Sinus Congestion, Sinus Pain/Tenderness Respiratory: Cough Cardiovascular: Negative Is Patient Immunocompromised?: No All Other Systems Reviewed And Are Negative: Yes Physical Exam Triage Information Reviewed: Yes Appearance: Well-Appearing, No Pain Distress, Well-Nourished Vital Signs: Initial Vital Signs Temp 97 F 05/29/18 09:49 Pulse 86 05/29/18 09:49 Resp 18 05/29/18 09:49 BP 136/92 05/29/18 09:49 Pulse Ox 100 05/29/18 09:49 Vital Signs Reviewed: Yes Eyes: Positive: Conjunctiva Clear ENT: Positive: Normal ENT inspection, Hearing grossly normal, Pharyngeal erythema, Nasal congestion, Nasal drainage, TMs normal, Sinus tenderness Neck exam: Normal Neck: Positive: Supple, Nontender, No Lymphadenopathy Respiratory: Positive: Chest non-tender, Lungs clear, Normal breath sounds Cardiovascular: Positive: RRR, No Murmur, Pulses Normal Skin Exam: Normal Throat Pain/Nasal Course/Dx - Differential Dx/Diagnosis Provider Diagnoses: sinusitis Discharge - Sign-Out/Discharge Documenting (check all that apply): Patient Departure All imaging exams completed and their final reports reviewed: No Studies - Discharge Plan Condition: Stable Disposition: HOME Prescriptions: Azithromycin TAB* [Zithromax TAB (Z-KANCHAN) 250 mg #6 tabs] 2 tab PO .TODAY, THEN 1 DAILY #1 kanchan Patient Education Materials: Sinusitis (ED) Referrals: Jen Suarez MD [Primary Care Provider] - If Needed - Billing Disposition and Condition Condition: STABLE Disposition: Home
== END 2018-05-29 10:24 | disposition home or self-care (01) ==
LOC: UCEAST 09:34
DX: J32.9 Chronic sinusitis, unspecified (principal); Z88.1 Allergy status to other antibiotic agents; Z72.0 Tobacco use
CPT/HCPCS: 99212; G0463

== ENCOUNTER 2018-07-21 12:03 | Emergency (ER) | payer OTHER ==
[2018-07-21 12:54] VITALS: BP 134/89
--- NOTE | 2018-07-21 13:57 | UC ---
Throat Pain/Nasal Teddy HPI - HPI Summary HPI Summary: 48 y/o female presents to the urgent care c/o sore throat and productive cough w / nasal congestion w/ green phlegm. sinus pressure and sinus pain. She has developed wheezing w/ mild SOB for the past 2 day. Pain w/ swallowing is 7/10. Pt reports her and daughter recently Dx w/ pneumonia. Another son w/ strep. Pt has been using her albuterol inhaler and now needs refill. Pt had chills last night and was unable to sleep well due to cough. Her left ear is painful too. She has applied some otic drops she has at home which improved her symptoms. - History of Current Complaint Chief Complaint: UCGeneralIllness Stated Complaint: SORE THROAT Time Seen by Provider: 07/21/18 13:46 Hx Obtained From: Patient Hx Last Menstrual Period: had hysterectomy ?: No Onset/Duration: Gradual Onset, Lasting Days - 5 days, Still Present, Worse Since - 2 days Severity: Moderate Pain Intensity: 8 - sore throat Pain Scale Used: 0-10 Numeric Cough: Sputum Appears - yellowish Associated Signs & Symptoms: Positive: Dysphagia, Wheezing, Sinus Discomfort, Nasal Discharge, Other - chills. Negative: Fever - Epiglottits Risk Factors Epiglottis Risk Factors: Negative - Allergies/Home Medications Allergies/Adverse Reactions: Allergies Allergy/AdvReac Type Severity Reaction Status Date / Time clavulanic acid Allergy Rash Verified 07/21/18 12:54 PMH/Surg Hx/FS Hx/Imm Hx Previously Healthy: Yes Respiratory History: Asthma - Surgical History Surgical History: Yes Surgery Procedure, Year, and Place: mass removed from uterus 06/13/12. right wrist ganglion cyst. 12/25/12 Hysterectomy. LEFT WRIST AND RIGHT FINGER GANGLION CYSTS REMOVAL 2016 - Family History Known Family History: Positive: Hypertension, Diabetes - Social History Occupation: Employed Full-time Lives: With Family Alcohol Use: None Substance Use Type: None Smoking Status (MU): Current Some Day Smoker Type: Cigarettes Amount Used/How Often: 1/2 ppd for 30 yrs Length of Time of Smoking/Using Tobacco: 30 years QUIT 09/16/15 BUT IS "CHEATING Have You Smoked in the Last Year: Yes When Did the Patient Quit Smoking/Using Tobacco: aug 12, 2015 Household Exposure Type: Cigarettes - Immunization History Most Recent Influenza Vaccination: 2014 Hx Tetanus, Diphtheria Vaccination: Yes Vaccination Up to Date: Yes Review of Systems All Other Systems Reviewed And Are Negative: Yes Constitutional: Positive: Chills Skin: Positive: Negative Eyes: Positive: Negative ENT: Positive: Sore Throat, Ear Ache - left ear pain and pressure, Nasal Discharge - yellowish, Sinus Congestion, Sinus Pain/Tenderness Respiratory: Positive: Shortness Of Breath - mild, Cough - productive w/ yellowish phlegm, Other - wheezing Cardiovascular: Positive: Negative Gastrointestinal: Positive: Negative Genitourinary: Positive: Negative Motor: Positive: Negative Neurovascular: Positive: Negative Musculoskeletal: Positive: Negative Neurological: Positive: Negative Psychological: Positive: Negative Is Patient Immunocompromised?: No Physical Exam - Summary Physical Exam Summary: Vital Signs Reviewed: Yes General: well developed, well nourished obese female sitting in the examining table w/o any apparent distress Eyes: Positive: Conjunctiva Clear - PERRLA, EOMI, fundi grossly normal ENT: Positive: Normal ENT inspection, Hearing grossly normal, Pharynx normal, Nasal congestion - edematous and erythematous nasal mucosa, Nasal drainage - yellowish drainage, TMs normal. Negative: Tonsillar swelling, Tonsillar exudate Neck: Positive: Supple, Nontender, No Lymphadenopathy Respiratory: no orthopnea or dyspnea. Able to speak in full sentences, no retractions or accessory muscle use, no tripod position, stridor, or head bobbing. Positive breath sounds bilaterally. diffuse scattered wheezing and rhonchi on b/L lungs, no crackles or rales. Cardiovascular: Positive: RRR, No Murmur, Pulses Normal, Brisk Capillary Refill Abdomen Description: Positive: Nontender, No Organomegaly, Soft. Negative: CVA Tenderness (R), CVA Tenderness (L) Bowel Sounds: Positive: Present Musculoskeletal Exam: Normal Musculoskeletal: Positive: Strength Intact, ROM Intact, No Edema Neurological Exam: Normal Psychological Exam: Normal Skin Exam: Normal Triage Information Reviewed: Yes Vital Signs: Initial Vital Signs Temp 98.8 F 07/21/18 12:50 Pulse 98 07/21/18 12:50 Resp 16 07/21/18 12:50 BP 134/89 07/21/18 12:50 Pulse Ox 97 07/21/18 12:50 Throat Pain/Nasal Course/Dx - Course Course Of Treatment: 48 y/o female presents to the urgent care c/o sore throat and productive cough w/ nasal congestion w/ green phlegm. sinus pressure and sinus pain. She has developed wheezing w/ mild SOB for the past 2 day. Pain w/ swallowing is 7/10. Pt reports her and daughter recently Dx w/ pneumonia. Another son w/ strep. Pt has been using her albuterol inhaler and now needs refill. Pt had chills last night and was unable to sleep well due to cough. Her left ear is painful too. She has applied some otic drops she has at home which improved her symptoms. Hx obtained. Pt w/ B/L lungs scattered wheezing and rhonchi on examination. O2Sat:97%. Pt w/ PMHX of asthma and heavy smoker in the past. Pt probably w/ a COPD exacerbation. Chest X-ray ordered: impression: findings of COPD, no acute disease observed. Pt given at the clinic Prednisone 60 mg PO and Duoneb treatment. Pt tolerated well medications and her lungs improved. Pt states feeling better. Pt will be tx w/ Rx Doxycycline PO , Prednisone taper dose and Inhaler. Strongly advised to f/u with her PCP for further management. D/C instructions explained. Pt understood and agreed with D/C instructions and left the clinic hemodynamically stable. - Differential Dx/Diagnosis Differential Diagnosis/HQI/PQRI: Influenza, Laryngitis, Mononucleosis, Pharyngitis, Sinusitis, Tonsillitis, URI, Other - pneumonia, bronchitis Provider Diagnoses: 1- COPD exacerbation due to bronchitis. 2-Wheezing Discharge - Sign-Out/Discharge Documenting (check all that apply): Patient Departure - d/c home All imaging exams completed and their final reports reviewed: Yes - Discharge Plan Condition: Stable Disposition: HOME Prescriptions: Albuterol HFA INHALER* [Ventolin HFA Inhaler*] 1 - 2 puff INH Q6H PRN #1 mdi PRN Reason: Wheezing Albuterol/Ipratropium NEB.ARTIS* [Duoneb (Albuterol 2.5 MG/Ipratropium 0.5 MG)] 1 neb INH Q6H PRN #1 box PRN Reason: Wheezing DOXYcycline CAP(*) [DOXYcycline 100MG CAP(*)] 100 mg PO BID #20 cap predniSONE TAB* [Deltasone 20 MG TAB*] 20 mg PO DAILY #8 tab Patient Education Materials: COPD (Chronic Obstructive Pulmonary Disease) (ED) , Wheezing (ED) Referrals: Jen Suarez MD [Primary Care Provider] - 3 Days Additional Instructions: 1-Please take full course of antibiotic to avoid resistance. 2-Use the albuterol inhaler to alleviate cough. Increase fluid intake, rest and eat well. 3- If symptoms do not improve or worsen or your develop SOB with fever and severe wheezing please go immediately to the ER further evaluation and treatment. 4- F/u with your PCP in 2-3 days for further management on you may be developing COPD - Billing Disposition and Condition Condition: STABLE Disposition: Home
[2018-07-21] MEDS ORDERED: Albuterol/Ipratropium NEB.SOL* Albuterol 2.5 MG/Ipratropium 0.5 MG 3 ML INH ONE (13:58)
[2018-07-21] MEDS ORDERED: predniSONE TAB* 20 MG PO ONE (13:59)
== END 2018-07-21 14:45 | disposition home or self-care (01) ==
LOC: UCEAST 12:03
DX: J44.1 Chronic obstructive pulmonary disease with (acute) exacerbation (principal); J20.9 Acute bronchitis, unspecified; J44.0 Chronic obstructive pulmonary disease with (acute) lower respiratory infection; F17.210 Nicotine dependence, cigarettes, uncomplicated
CPT/HCPCS: 71046; 87651; 99212; A9270-GY; G0463; J7512

== ENCOUNTER 2019-07-12 17:49 | Emergency (ER) | payer OTHER ==
[2019-07-12 18:02] VITALS: BP 140/85
--- NOTE | 2019-07-12 18:18 | UC ---
Throat Pain/Nasal Teddy HPI - HPI Summary HPI Summary: 49 years old female with PH + for cellulitis around eye in past due to pink eye , fibromyalgia, presents with pain, swollen, red nose starting monday. Patient blew nose, nail scratched nail in nose. ? fevers, tactile, low grade. Pain increasing daily, now radiating into eyes, more right sided. no ear pain, no throat pain, no other symptoms, no nose bleeding. - History of Current Complaint Chief Complaint: UCGeneralIllness Stated Complaint: NOSE INFECTION Time Seen by Provider: 07/12/19 18:17 Hx Obtained From: Patient Hx Last Menstrual Period: had hysterectomy ?: No Onset/Duration: Sudden Onset, Lasting Days - 3 days Severity: Severe Pain Intensity: 9 Pain Scale Used: 0-10 Numeric Related History: Smoking - Epiglottits Risk Factors Epiglottis Risk Factors: Sudden Onset - Allergies/Home Medications Allergies/Adverse Reactions: Allergies Allergy/AdvReac Type Severity Reaction Status Date / Time amoxicillin [From Augmentin] Allergy Rash Verified 07/12/19 18:02 clavulanic acid Allergy Rash Verified 07/12/19 18:02 Home Medications: Home Medications Fluticasone NASAL SPRAY 50MCG* [Flonase NASAL SPRAY 50MCG*] 2 spray BOTH NARES DAILY PRN 07/12/19 [History Confirmed 07/12/19] Gabapentin CAP(*) [Neurontin 300 CAP(*)] 300 mg PO BEDTIME 07/12/19 [History Confirmed 07/12/19] PMH/Surg Hx/FS Hx/Imm Hx Previously Healthy: No - fibromyalgia. noh/o MRSA - Surgical History Surgical History: Yes Surgery Procedure, Year, and Place: mass removed from uterus 06/13/12. right wrist ganglion cyst. 12/25/12 Hysterectomy. LEFT WRIST AND RIGHT FINGER GANGLION CYSTS REMOVAL 2016 - Family History Known Family History: Positive: None, Hypertension, Diabetes, Other - noncontributory - Social History Alcohol Use: None Substance Use Type: None Smoking Status (MU): Light Every Day Tobacco Smoker Type: Cigarettes Amount Used/How Often: 1/2 ppd for 30 yrs Length of Time of Smoking/Using Tobacco: 30 years QUIT 09/16/15 BUT IS "CHEATING Have You Smoked in the Last Year: Yes When Did the Patient Quit Smoking/Using Tobacco: aug 12, 2015 Household Exposure Type: Cigarettes - Immunization History Most Recent Influenza Vaccination: 2015 Hx Tetanus, Diphtheria Vaccination: Yes Vaccination Up to Date: Yes Review of Systems All Other Systems Reviewed And Are Negative: Yes Constitutional: Positive: Fever - tactile, Chills. Negative: Fatigue Skin: Negative: Rash Eyes: Negative: Blurred Vision, Diplopia, Drainage, Eye Redness, Photophobia ENT: Positive: Nasal Discharge, Sinus Congestion, Sinus Pain/Tenderness. Negative: Sore Throat, Ear Ache Musculoskeletal: Positive: Negative Neurological: Positive: Negative Is Patient Immunocompromised?: No Physical Exam Triage Information Reviewed: Yes Appearance: Well-Appearing, No Pain Distress, Well-Nourished Vital Signs: Initial Vital Signs Temp 99.5 F 07/12/19 17:57 Pulse 92 07/12/19 17:57 Resp 16 07/12/19 17:57 BP 140/85 07/12/19 17:57 Pulse Ox 100 07/12/19 17:57 Vital Signs Reviewed: No Eyes: Positive: Conjunctiva Clear, Other: - EMOI ENT: Positive: Hearing grossly normal, TMs normal, Sinus tenderness, Other - minimal edema with mild erythema noted at distal nose, R>L, with TTP over nose, right max sinuses with minimal edema noted. No lymphangetic streaking. Full EMOI without pain.. Negative: TM bulging, TM dull, TM red Neck: Positive: Supple, Nontender, No Lymphadenopathy. Negative: Nuchal Rigidity, Enlarged Nodes @ Throat Pain/Nasal Course/Dx - Course Course Of Treatment: Cellulitis, nose - FOllow up with primary physician in 2-3 days for re-evalution - go to ER with increased pain, swelling, fever or if no improvement within 24 hours - Clindamycin every 6 hours x 7 days - Cool compresses for pain as needed - Motrin/ tylenol as needed for pain - Differential Dx/Diagnosis Differential Diagnosis/HQI/PQRI: Pharyngitis, Sinusitis, URI Provider Diagnosis: Cellulitis Discharge ED - Sign-Out/Discharge Documenting (check all that apply): Patient Departure All imaging exams completed and their final reports reviewed: No Studies - Discharge Plan Condition: Fair Disposition: HOME Prescriptions: Clindamycin HCl 300 mg PO QID #28 capsule Patient Education Materials: Cellulitis (ED) Referrals: Jen Suarez MD [Primary Care Provider] - Additional Instructions: - FOllow up with primary physician in 2-3 days for re-evalution - go to ER with increased pain, swelling, fever or if no improvement within 24 hours due to possible worsening of infection and need for imaging - Clindamycin every 6 hours x 7 days - Cool compresses for pain as needed - Motrin/ tylenol as needed for pain - Billing Disposition and Condition Condition: FAIR Disposition: Home
[2019-07-12] MEDS ORDERED: Clindamycin CAP* 150 MG PO ONE (18:37)
== END 2019-07-12 18:49 | disposition home or self-care (01) ==
LOC: UCEAST 17:49
DX: J34.0 Abscess, furuncle and carbuncle of nose (principal); M79.7 Fibromyalgia; Z88.1 Allergy status to other antibiotic agents; Z88.0 Allergy status to penicillin; F17.210 Nicotine dependence, cigarettes, uncomplicated
CPT/HCPCS: 99212; A9270-GY; G0463